=== PATIENT | female | born 1975 | race Caucasian/White ===

== ENCOUNTER 2016-05-17 08:42 | Emergency (ER) | payer SELFPAY ==
[~2016-05-17] VITALS: Ht 160 cm; Wt 152.0 kg
[2016-05-17] MEDS ORDERED: IV NORMAL SALINE 1000ML BAG 1,000 ML IV ONE (09:00)
--- NOTE | 2016-05-17 09:22 | RAD ---
Right hand, 3 views, 05/17/2016: History: Seizure, hand pain No fracture or dislocation is identified. A small well-defined lucency is present in the scaphoid bone, probably a benign cyst. The soft tissues are unremarkable. IMPRESSION: No acute bony abnormality is detected.
--- NOTE | 2016-05-17 09:51 | EKG ---
[facility] [address] [place] [address] Test Date: 2016-05-17 Test Time: 09:18:38 Pat Name: VIJAY SOTO Department: Room: Gender: F Casualty Claim Adjuster: : 1975 Requested By: HUBERT CINTRON Order Number: [id number] Reading MD: Laurel Sanford Measurements Intervals [place] Rate: 77 P: 39 MI: 138 QRS: -21 QRSD: 106 T: 14 QT: 416 QTc: 473 Interpretive Statements SINUS RHYTHM LEFTWARD AXIS INCOMPLETE RIGHT BUNDLE BRANCH BLOCK RI6.01 No previous ECG available for comparison Electronically Signed On 05-17-2016 20:59:28 CDT by Laurel Sanford
[2016-05-17 09:59] LABS: BASO % 0 % (0-3); EOS % 1 % (0-3); HEMATOCRIT 37.4 % (36.0-47.0); HEMOGLOBIN 12.2 g/dL (12.0-15.5); LYMPH # 2.6 x10^3/uL (1.0-4.8); LYMPH % 26 % (24-48); MEAN CORPUSCULAR HEMOGLOBIN 26 pg (25-35); MEAN CORPUSCULAR HGB CONC 33 g/dL (31-37); MEAN CORPUSCULAR VOLUME 79 fL (79-100); MONO % 5 % (0-9); NEUT % 67 % (31-73); PLATELET COUNT 246 x10^3/uL (140-400); RED BLOOD COUNT 4.74 x10^6/uL (3.50-5.40); RED CELL DISTRIBUTION WIDTH 14.7 % (11.5-14.5); WHITE BLOOD COUNT 10.2 x10^3/uL (4.0-11.0)
--- NOTE | 2016-05-17 10:49 | PHYS DOC ---
Past Medical History Past Medical History: Seizure Additional Past Medical Histor: 1- 7yrs ago in 2010 and 1- 3yrs ago. Past Surgical History: , Tubal ligation Additional Information: "Roll my own." Smokes at least 20 cigarettes/day. Alcohol Use: None Drug Use: None Adult General Chief Complaint Chief Complaint: SEIZURE HPI HPI Patient is a 40 year old female who presents with seizure. Patient brought by EMS, legal support analyst providing history. Reportedly patient was sitting on the edge of her bed, family witnessed tonic-clonic movements for unknown duration which spontaneously resolved. unknown whether she experienced fall, she was seated on the floor when she awoke. She denies tongue biting, loss of bowel/bladder continence. Denies any headache, neck pain, back pain, extremity pain. She denies any recent illness, new medications, alcohol use or discontinuation, use of street drugs. She reports previous history 7 years ago while , took oral medications briefly but was lost to follow up, had a single seizure about 3 years ago & did not seek medical attention. Not currently taking any antiepileptic medication or following with a neurologist or PCP. Review of Systems Review of Systems Constitutional: Denies fever or chills Eyes: Denies change in visual acuity HENT: Denies nasal congestion or sore throat Respiratory: Denies cough or shortness of breath Cardiovascular: Denies chest pain or edema GI: Denies abdominal pain, nausea, vomiting : Denies dysuria Musculoskeletal: Denies back pain or joint pain Integument: Denies rash or skin lesions Neurologic: Reports seizure & headache, denies focal weakness or sensory changes Current Medications Current Medications Current Medications Medications (Trade) Dose Ordered Sig/Shandra Start Time Stop Time Status Last Admin Dose Admin Sodium Chloride (Iv Sodium Chloride 0.9% 1000ml Bag) 1,000 ml @ 1,000 mls/hr 1X ONCE 05/17/16 09:00 05/17/16 09:59 DC 05/17/16 10:54 1,000 MLS/HR Allergies Allergies Allergies Coded Allergies Type Severity Reaction Last Updated Verified Penicillins Allergy Intermediate Hives 11/29/13 No Physical Exam Physical Exam Constitutional: obese, poor hygiene, no acute distress, non-toxic appearance. HENT: Normocephalic, atraumatic, bilateral external ears normal, oropharynx moist, nose normal. poor dentition. Eyes: PERRLA, EOMI, conjunctiva normal, no discharge. Neck: supple, no stridor. no midline c-spine tenderness. Cardiovascular: RRR, no murmurs, no edema. Lungs & Thorax: LCTAB, no wheezing, no respiratory distress. Abdomen: soft, nontender, nondistended. Skin: Warm, dry, no erythema, no rash. Back: No focal tenderness with palpation over the spine. Extremities: No focal bony tenderness, no edema. right hand tenderness noted over 5th metacarpal without swelling or deformity, no wrist tenderness, radial pulse 2+, radial/median/ulnar nerve sensory & motor function intact. Neurologic: Alert and oriented X 3, CN2-12 grossly intact, symmetric strength/ sensation to UE & LE, no focal deficits noted. Psychologic: Affect normal, judgement normal, mood normal. Current Patient Data Vital Signs Vital Signs Date Time Temp Pulse Resp B/P Pulse Ox O2 Delivery O2 Flow Rate FiO2 05/17/16 12:30 72 20 153/84 95 Room Air 05/17/16 08:42 97.5 95 97.5 Lab Values Laboratory Tests Test 05/17/16 09:48 05/17/16 09:50 05/17/16 10:40 05/17/16 10:45 POC Urine HCG, Qualitative Hcg negative (Negative) White Blood Count 10.2x10^3/uL (4.0-11.0) Red Blood Count 4.74x10^6/uL (3.50-5.40) Hemoglobin 12.2g/dL (12.0-15.5) Hematocrit 37.4% (36.0-47.0) Mean Corpuscular Volume 79fL (79-100) Mean Corpuscular Hemoglobin 26pg (25-35) Mean Corpuscular Hemoglobin Concent 33g/dL (31-37) Red Cell Distribution Width 14.7% (11.5-14.5) H Platelet Count 246x10^3/uL (140-400) Neutrophils (%) (Auto) 67% (31-73) Lymphocytes (%) (Auto) 26% (24-48) Monocytes (%) (Auto) 5% (0-9) Eosinophils (%) (Auto) 1% (0-3) Basophils (%) (Auto) 0% (0-3) Neutrophils # (Auto) 6.8x10^3uL (1.8-7.7) Lymphocytes # (Auto) 2.6x10^3/uL (1.0-4.8) Monocytes # (Auto) 0.6x10^3/uL (0.0-1.1) Eosinophils # (Auto) 0.1x10^3/uL (0.0-0.7) Basophils # (Auto) 0.0x10^3/uL (0.0-0.2) Urine Opiates Screen Neg (NEG) Urine Methadone Screen Neg (NEG) Urine Barbiturates Neg (NEG) Urine Phencyclidine Screen Neg (NEG) Urine Amphetamine/Methamphetamine Neg (NEG) Urine Benzodiazepines Screen Neg (NEG) Urine Cocaine Screen Neg (NEG) Urine Cannabinoids Screen Pos (NEG) Urine Ethyl Alcohol Neg (NEG) Sodium Level 136mmol/L (136-145) Potassium Level 3.8mmol/L (3.5-5.1) Chloride Level 103mmol/L (98-107) Carbon Dioxide Level 21mmol/L (21-32) Anion Gap 12 (6-14) Blood Urea Nitrogen 12mg/dL (7-20) Creatinine 0.9mg/dL (0.6-1.0) Estimated GFR (Cockcroft-Gault) 70.1 BUN/Creatinine Ratio 13 (6-20) Glucose Level 173mg/dL (70-99) H Calcium Level 9.3mg/dL (8.5-10.1) Total Bilirubin 0.3mg/dL (0.2-1.0) Aspartate Amino Transferase (AST) 24U/L (15-37) Alanine Aminotransferase (ALT) 25U/L (14-59) Alkaline Phosphatase 107U/L (46-116) Total Protein 8.4g/dL (6.4-8.2) H Albumin 3.2g/dL (3.4-5.0) L Albumin/Globulin Ratio 0.6 (1.0-1.7) L Ethyl Alcohol Level < 10mg/dL (0-10) Laboratory Tests 05/17/16 09:50 Laboratory Tests 05/17/16 10:45 EKG EKG Introverted by me: Normal sinus rhythm rate 77, no ST elevation, T waves inverted in leads 3, V1/V2, QTC prolonged 473 ms, no ectopy. [] Radiology/Procedures Radiology/Procedures PROCEDURE: HEAD WO CONTRAST CT of the head without contrast, 05/17/2016: History: Seizure Comparison is made to a study from 11/16/2006. The ventricles are within normal limits in size. There is no shift of the midline structures. There is no evidence of acute intracranial hemorrhage or mass effect. IMPRESSION: No acute intracranial abnormality is detected. PQRS Compliance Statement: One or more of the following individualized dose reduction techniques were utilized for this examination: 1. Automated exposure control 2. Adjustment of the mA and/or kV according to patient size 3. Use of iterative reconstruction technique DICTATED and SIGNED BY: LEON SEWELL MD DATE: 05/17/16 1118 PROCEDURE: HAND RIGHT 3V Right hand, 3 views, 05/17/2016: History: Seizure, hand pain No fracture or dislocation is identified. A small well-defined lucency is present in the scaphoid bone, probably a benign cyst. The soft tissues are unremarkable. IMPRESSION: No acute bony abnormality is detected. DICTATED and SIGNED BY: LEON SEWELL MD DATE: 05/17/16 0918 [] Course & Med Decision Making Course & Med Decision Making Pertinent Labs and Imaging studies reviewed. (See chart for details) Patient presents after seizure. Normal neurologic exam upon arrival, not postictal. EMS did report possible postictal state upon their arrival to the scene. CT head unremarkable for acute process. Labs as above, UDS shows + cannabinoid. I offered admission for seizure workup which patient declined. Discussed presentation, exam, & results with Dr. Hearn contract project manager for neurology. She recommends that patient may be discharged today, requested order for outpatient EEG & she will follow up with patient if results are abnormal. Patient counseled to discontinue marijuana use, no driving, do not bathe or shower when alone in the home, no swimming. Follow up in neurology clinic or with primary care within 1 week. Come back for status epilepticus, serious injury sustained during seizure, otherwise worsening condition. Discharged home in stable condition. [] Dragon Disclaimer Dragon Disclaimer This electronic medical record was generated, in whole or in part, using a voice recognition dictation system. Departure Departure Impression: Primary Impression: Seizure Additional Impressions: Hand contusion Marijuana abuse Disposition: HOME, SELF-CARE Condition: STABLE Referrals: PABLO HEARN MD Patient Instructions: Seizure, Adult, [id number] Additional Instructions: You were seen in the emergency department today for seizure. Tests here did not show any serious findings. You did test positive for marijuana in your urine. This could be related to the seizure. Please do not use street drugs. Do not drive a car, take a bath or shower when neurologic in the house, or operate heavy machinery. Follow-up within [address] Hearn in the neurology clinic. You will need to have an EEG performed at that time. Come back to the emergency department for recurrence of seizure, prolonged seizure, injury sustained during seizure, any otherwise worsening condition. Problem Qualifiers HUBERT CINTRON MD May 17, 2016 10:48
[2016-05-17 11:05] LABS: CALCIUM 9.3 mg/dL (8.5-10.1); CREATININE 0.9 mg/dL (0.6-1.0); GFR 70.1; POTASSIUM 3.8 mmol/L (3.5-5.1)
[2016-05-17 11:05] LABS: BARBITURATES NEG (NEG); BENZODIAZEPINES NEG (NEG); CANNABINOIDS POS (NEG); COCAINE NEG (NEG); METHADONE NEG (NEG); OPIATES NEG (NEG); PHENCYCLIDINE NEG (NEG)
[2016-05-17 11:07] LABS: ETHANOL, URINE NEG (NEG)
[2016-05-17 11:11] LABS: ALBUMIN 3.2 g/dL (3.4-5.0); ALBUMIN/GLOBULIN RATIO 0.6 (1.0-1.7); TOTAL BILIRUBIN 0.3 mg/dL (0.2-1.0); TOTAL PROTEIN 8.4 g/dL (6.4-8.2)
--- NOTE | 2016-05-17 11:22 | RAD ---
CT of the head without contrast, 05/17/2016: History: Seizure Comparison is made to a study from 11/16/2006. The ventricles are within normal limits in size. There is no shift of the midline structures. There is no evidence of acute intracranial hemorrhage or mass effect. IMPRESSION: No acute intracranial abnormality is detected. PQRS Compliance Statement: One or more of the following individualized dose reduction techniques were utilized for this examination: 1. Automated exposure control 2. Adjustment of the mA and/or kV according to patient size 3. Use of iterative reconstruction technique
[2016-05-17 12:30] VITALS: BP 153/84
== END 2016-05-17 13:30 | disposition home or self-care (01) ==
LOC: ER 08:42
DX: S60.221A Contusion of right hand, initial encounter (principal); R56.9 Unspecified convulsions; F12.10 Cannabis abuse, uncomplicated; R51 Headache; E66.9 Obesity, unspecified; F17.210 Nicotine dependence, cigarettes, uncomplicated; Z68.43 Body mass index [BMI] 50.0-59.9, adult; Z88.0 Allergy status to penicillin; W06.XXXA Fall from bed, initial encounter; Y93.89 Activity, other specified; Y92.89 Other specified places as the place of occurrence of the external cause; Y99.8 Other external cause status
CPT/HCPCS: 36415; 70450; 73130; 80053; 80305; 80320; 81025; 85027; 93005; 96360; 96361; 99285; J7030; G0480; G0481

== ENCOUNTER 2016-08-07 16:20 | Emergency (ER) | payer SELFPAY ==
[~2016-08-07] VITALS: Ht 152.4 cm; Wt 104.3 kg
--- NOTE | 2016-08-07 17:14 | PHYS DOC ---
Past Medical History Past Medical History: Seizure Additional Past Medical Histor: 1- 7yrs ago in 2010 and 1- 3yrs ago. Past Surgical History: , Tubal ligation Alcohol Use: None Drug Use: None Adult General Chief Complaint Chief Complaint: VAGINAL PROBLEM HPI HPI Patient is a 41 year old female with history seizure and morbidly obese who presents today complaining of vaginal pain for 2 days. Patient states she thought she had a cyst on her right labia and she tried to pop it yesterday but still has the pain in the vaginal area. Patient states her son is overweight too and has diabetes, patient states she does not have diabetes or high blood pressure. Review of Systems Review of Systems Constitutional: Denies fever or chills [] Eyes: Denies change in visual acuity, redness, or eye pain [] HENT: Denies nasal congestion or sore throat [] Respiratory: Denies cough or shortness of breath [] Cardiovascular: No additional information not addressed in HPI [] GI: Denies abdominal pain, nausea, vomiting, bloody stools or diarrhea [] : Denies dysuria or hematuria [] Musculoskeletal: Denies back pain or joint pain [] Integument: vaginal pain. Neurologic: Denies headache, focal weakness or sensory changes [] Endocrine: Denies polyuria or polydipsia [] Current Medications Current Medications Current Medications Medications (Trade) Dose Ordered Sig/Shandra Start Time Stop Time Status Last Admin Dose Admin Acetaminophen/ Hydrocodone Bitart (Lortab 5/325) 1 tab 1X ONCE 08/07/16 18:45 08/07/16 18:46 DC 08/07/16 18:37 1 TAB Diphtheria/ Tetanus/Acell Pertussis (Boostrix) 0.5 ml ONCE ONCE 08/07/16 17:30 08/07/16 17:31 DC 08/07/16 18:04 0.5 ML Insulin Human Regular (NovoLIN R VIAL) 8 unit 1X ONCE 08/07/16 18:45 08/07/16 18:46 DC 08/07/16 18:33 8 UNIT Lidocaine HCl (Glydo (Lidocaine) Jelly) 1 sahil 1X ONCE 08/07/16 19:30 08/07/16 19:31 08/07/16 19:22 1 SAHIL Sodium Chloride 1,000 ml @ 1,000 mls/hr 1X ONCE 08/07/16 18:30 08/07/16 19:29 08/07/16 18:41 1,000 MLS/HR Allergies Allergies Allergies Coded Allergies Type Severity Reaction Last Updated Verified Penicillins Allergy Intermediate Hives 11/29/13 No Physical Exam Physical Exam Constitutional: Well developed, well nourished, no acute distress, non-toxic appearance. [] HENT: Normocephalic, atraumatic, bilateral external ears normal, oropharynx moist, no oral exudates, nose normal. [] Eyes: PERRLA, EOMI, conjunctiva normal, no discharge. [] Neck: Normal range of motion, no tenderness, supple, no stridor. [] Cardiovascular:Heart rate regular rhythm, no murmur [] Lungs & Thorax: Bilateral breath sounds clear to auscultation [] Abdomen: Bowel sounds normal, soft, no tenderness, no masses, no pulsatile masses. [] Pelvic exam External pelvic has moderate erythematous and macerated areas consistent with a yeast infection. No abscess noted. Skin: Warm, dry, no erythema, no rash. [] Back: No tenderness, no CVA tenderness. [] Extremities: No tenderness, no cyanosis, no clubbing, ROM intact, no edema. [] Neurologic: Alert and oriented X 3, normal motor function, normal sensory function, no focal deficits noted. [] Psychologic: Affect normal, judgement normal, mood normal. [] Current Patient Data Vital Signs Vital Signs Date Time Temp Pulse Resp B/P (MAP) Pulse Ox O2 Delivery O2 Flow Rate FiO2 08/07/16 18:37 18 99 Room Air 08/07/16 18:10 100 158/72 (100) 08/07/16 16:20 98.9 98.9 Lab Values Laboratory Tests Test 08/07/16 17:11 08/07/16 17:27 08/07/16 17:57 08/07/16 18:14 Glucose (Fingerstick) 456 mg/dL (70-99) H POC Urine HCG, Qualitative Hcg negative (Negative) White Blood Count 14.3 x10^3/uL (4.0-11.0) H Red Blood Count 4.78 x10^6/uL (3.50-5.40) Hemoglobin 12.4 g/dL (12.0-15.5) Hematocrit 37.5 % (36.0-47.0) Mean Corpuscular Volume 79 fL (79-100) Mean Corpuscular Hemoglobin 26 pg (25-35) Mean Corpuscular Hemoglobin Concent 33 g/dL (31-37) Red Cell Distribution Width 15.8 % (11.5-14.5) H Platelet Count 297 x10^3/uL (140-400) Neutrophils (%) (Auto) 77 % (31-73) H Lymphocytes (%) (Auto) 16 % (24-48) L Monocytes (%) (Auto) 5 % (0-9) Eosinophils (%) (Auto) 1 % (0-3) Basophils (%) (Auto) 1 % (0-3) Neutrophils # (Auto) 11.0 x10^3uL (1.8-7.7) H Lymphocytes # (Auto) 2.4 x10^3/uL (1.0-4.8) Monocytes # (Auto) 0.7 x10^3/uL (0.0-1.1) Eosinophils # (Auto) 0.1 x10^3/uL (0.0-0.7) Basophils # (Auto) 0.1 x10^3/uL (0.0-0.2) Sodium Level 133 mmol/L (136-145) L Potassium Level 3.9 mmol/L (3.5-5.1) Chloride Level 99 mmol/L (98-107) Carbon Dioxide Level 27 mmol/L (21-32) Anion Gap 7 (6-14) Blood Urea Nitrogen 7 mg/dL (7-20) Creatinine 1.0 mg/dL (0.6-1.0) Estimated GFR (Cockcroft-Gault) 61.7 Glucose Level 400 mg/dL (70-99) H Calcium Level 9.5 mg/dL (8.5-10.1) Urine Collection Type Unknown Urine Color Red Urine Clarity Cloudy Urine pH 6.5 Urine Specific [place] >=1.030 Urine Protein 100 mg/dL (NEG-TRACE) Urine Glucose (UA) >=1000 mg/dL (NEG) Urine Ketones (Stick) Trace mg/dL (NEG) Urine Blood Large (NEG) Urine Nitrite Negative (NEG) Urine Bilirubin Negative (NEG) Urine Urobilinogen Dipstick 0.2 mg/dL (0.2 mg/dL) Urine Leukocyte Esterase Moderate (NEG) Urine RBC Tntc /HPF (0-2) Urine WBC 20-40 /HPF (0-4) Urine Squamous Epithelial Cells Mod /LPF Urine Bacteria Mod /HPF (0-FEW) Urine Mucus Slight /LPF Laboratory Tests 08/07/16 17:57 Laboratory Tests 08/07/16 17:57 EKG EKG [] Radiology/Procedures Radiology/Procedures [] Course & Med Decision Making Course & Med Decision Making Pertinent Labs and Imaging studies reviewed. (See chart for details) Patient is in the ED complaining of vaginal pain and a cyst on her right labia that she tried to pop but nothing came out. No cyst was noted on the right labia but she has moderate candidiasis. She is morbidly obese at approx. 230 pounds. Patient's blood sugar is 456, blood pressure was 172/94, denies any history of hypertension. CBC with a WBC of 14.1, BMP with glucose of 400, anion gap 7. Urine positive for UTI. Patient was given 2 L of IV fluid and 8 units of insulin. Blood glucose is 170. She has been asking for food since she came to the ED. We had to talk to her about diabetes high blood pressure and the need to exercise and lose some weight. Patient continues to state she does not care about her weight , diabetes or hypertension despite telling her what will happen if her sugars are not under control and her blood pressures continue to be high. She was discharged with fluconazole, nystatin cream, lidocaine cream, Bactrim for UTI, and hydrocodone for pain. She was instructed to follow-up with a doctor from the list provided as soon as she can. She was provided return precautions and discharged in stable condition. Dragon Disclaimer Dragon Disclaimer This electronic medical record was generated, in whole or in part, using a voice recognition dictation system. Departure Departure Impression: Primary Impression: Acute hyperglycemia Additional Impressions: Urinary tract infection Vaginal candidiasis Diabetes Hypertension Disposition: HOME, SELF-CARE Condition: STABLE Referrals: NO PCP (PCP) Follow-up with a primary care doctor from the list provided tomorrow. Patient Instructions: 1800 Calorie Diet for Diabetes Meal Planning, Candidal Vulvovaginitis, [id number], Diabetes Meal Planning Guide, Hypertension, Urinary Tract Infection Additional Instructions: You were seen for vaginal candidiasis. This is a yeast infection that typically occurs on patient's with diabetes. Your lab work shows you have diabetes and you also have high blood pressure. We highly recommend you follow-up with a primary care doctor from the list provided as soon as possible. You also have urinary tract infection. We put you on antibiotics. Take them as prescribed. Consider following the 1800-calorie diet attached to this paperwork. Scripts Nystatin (NYSTATIN) 15 Gm Oint...g. 1 SAHIL TP TID, #15 GM 2 Refills apply to external vaginal area. Prov: KG PIERCE APRN 08/07/16 Hydrocodone/Apap 5-325 (NORCO 5-325 TABLET) 1 Each Tablet 1-2 TAB PO Q4-6HRS, #15 TAB Prov: KG PIERCE APRN 08/07/16 Lidocaine/Prilocaine (LIDOCAINE-PRILOCAINE CREAM) 30 Gm Cream..g. 1 SAHIL TP UD, #30 GM 1 Refill Apply to the affected exterior vaginal area as needed for pain Prov: KG PIERCE APRN 08/07/16 Sulfamethoxazole/Trimethoprim (BACTRIM DS TABLET) 1 Each Tablet 1 TAB PO BID, #10 TAB Prov: KG PIERCE APRN 08/07/16 Fluconazole (DIFLUCAN) 150 Mg Tablet 1 TAB PO ONCE, #2 TAB 1 Refill Take one tablet today and repeat in seven days Prov: KG PIERCE APRN 08/07/16 Problem Qualifiers Additional Impressions: Urinary tract infection Urinary tract infection type: site unspecified Hematuria presence: without hematuria Qualified Codes: N39.0 - Urinary tract infection, site not specified Diabetes Diabetes mellitus type: type 2 Diabetes mellitus complication status: with unspecified complications Diabetes mellitus long term care social worker insulin use: without detention use Qualified Codes: E11.8 - Type 2 diabetes mellitus with unspecified complications Hypertension Hypertension type: unspecified secondary hypertension Qualified Codes: I15.9 - Secondary hypertension, unspecified KG PIERCE APRN Aug 07, 2016 17:14
[2016-08-07] MEDS ORDERED: DIPHTH,PERTUSS(ACELL),TET TOX 0.5 ML DISP.SYRIN. VAX IM ONE (17:30)
[2016-08-07] MEDS ORDERED: IV NORMAL SALINE 1000ML BAG 1,000 ML IV ONE ×2 (17:30→18:30)
[2016-08-07 18:04] LABS: BASO # 0.1 x10^3/uL (0.0-0.2); BASO % 1 % (0-3); EOS % 1 % (0-3); HEMATOCRIT 37.5 % (36.0-47.0); HEMOGLOBIN 12.4 g/dL (12.0-15.5); LYMPH # 2.4 x10^3/uL (1.0-4.8); LYMPH % 16 % (24-48); MEAN CORPUSCULAR HEMOGLOBIN 26 pg (25-35); MEAN CORPUSCULAR HGB CONC 33 g/dL (31-37); MEAN CORPUSCULAR VOLUME 79 fL (79-100); MONO % 5 % (0-9); NEUT % 77 % (31-73); PLATELET COUNT 297 x10^3/uL (140-400); RED BLOOD COUNT 4.78 x10^6/uL (3.50-5.40); RED CELL DISTRIBUTION WIDTH 15.8 % (11.5-14.5); WHITE BLOOD COUNT 14.3 x10^3/uL (4.0-11.0)
[2016-08-07 18:16] LABS: CALCIUM 9.5 mg/dL (8.5-10.1); GFR 61.7; POTASSIUM 3.9 mmol/L (3.5-5.1)
[2016-08-07 18:24] LABS: BILIRUBIN,URINE NEGATIVE (NEG); GLUCOSE,URINE >=1000 mg/dL (NEG); NITRITE,URINE NEGATIVE (NEG); PH,URINE 6.5; PROTEIN,URINE 100 mg/dL (NEG-TRACE); UROBILINOGEN,URINE 0.2 mg/dL (0.2 mg/dL)
[2016-08-07 18:34] LABS: BACTERIA,URINE MOD /HPF (0-FEW); RBC,URINE TNTC /HPF (0-2); SQUAMOUS EPITHELIAL CELL,UR MOD /LPF; WBC,URINE 20-40 /HPF (0-4)
[2016-08-07] MEDS ORDERED: INSULIN REGULAR 100 UNIT/ML 10ML VIAL. IV ONE (18:45)
[2016-08-07] MEDS ORDERED: HYDROcodone/APAP 5/325MG 1 TAB TABLET PO ONE (18:45)
[2016-08-07 19:16] VITALS: BP 172/94
[2016-08-07] MEDS ORDERED: HYDR-971 PO (19:21)
[2016-08-07] MEDS ORDERED: SULF1TAB24 PO (19:21)
[2016-08-07] MEDS ORDERED: LIDO30CR TP (19:21)
[2016-08-07] MEDS ORDERED: FLUC150T PO (19:21)
[2016-08-07] MEDS ORDERED: NYST15OI TP (19:28)
[2016-08-07] MEDS ORDERED: LIDOCAINE 2% JELLY 6ML IN APPLICATOR. MM ONE (19:30)
== END 2016-08-07 19:40 | disposition home or self-care (01) ==
LOC: ER 16:20
DX: N39.0 Urinary tract infection, site not specified (principal); B37.3 Candidiasis of vulva and vagina; E11.65 Type 2 diabetes mellitus with hyperglycemia; I15.9 Secondary hypertension, unspecified; N90.7 Vulvar cyst; E66.01 Morbid (severe) obesity due to excess calories; Z68.41 Body mass index [BMI] 40.0-44.9, adult; Z98.890 Other specified postprocedural states; Z98.51 Tubal ligation status; Z88.0 Allergy status to penicillin
CPT/HCPCS: 36415; 80048; 81001; 81025; 82962; 85027; 90471; 90715; 96361; 96374; 99284; J1815; J7030

== ENCOUNTER 2018-07-09 16:15 | Emergency (ER) | payer OTHER, SELFPAY ==
[~2018-07-09] VITALS: Ht 162.6 cm; Wt 113.4 kg
[~2018-07-09 16:15] MED LIST: FLUC150T PO; HYDR-3164 PO; LIDO30CR TP; NYST15OI TP; SULF1TAB24 PO
--- NOTE | 2018-07-09 16:43 | PHYS DOC ---
Past Medical History Past Medical History: Diabetes-Type II, Seizure Additional Past Medical Histor: 1- 7yrs ago in 2010 and 1- 3yrs ago. (CRISTINA COTTO APRN) Past Surgical History: , Tubal ligation (CRISTINA COTTO APRN) Smoking: Cigarettes, Less than 1pk/day Alcohol Use: None Drug Use: None (CRISTINA COTTO APRN) Adult General Chief Complaint Chief Complaint: CHEST WALL PAIN HPI HPI Patient is a 43 year old female who presents with chest pain that has been ongoing for month. She has associated symptoms include a cough that has been ongoing for 2 Months, also has urinary frequency. She has hx of diabetes but does not take medications or follow with a primary care provider. States the pain worsens when she moves her arm or breathes in and out. Rates her pain as 7/10 and aches. She is a poor historian and does not go to a primary care doctor. (CRISTINA COTTO APRN) Review of Systems Review of Systems Constitutional: Denies fever or chills [] Eyes: Denies change in visual acuity, redness, or eye pain [] HENT: Denies nasal congestion or sore throat [] Respiratory: Reports cough and shortness of breath [] Cardiovascular: No additional information not addressed in HPI [] GI: Denies abdominal pain, nausea, vomiting, bloody stools or diarrhea [] : Denies dysuria or hematuria [] Musculoskeletal: Denies back pain or joint pain [] Integument: Denies rash or skin lesions [] Neurologic: Reports headache and dizziness, denies focal weakness or sensory ch anges [] Endocrine: Reports polyuria denies polydipsia [] Complete systems were reviewed and found to be within normal limits, except as documented in this note. (CRISTINA COTTO APRN) Current Medications Current Medications Current Medications Medications (Trade) Dose Ordered Sig/Shandra Start Time Stop Time Status Last Admin Dose Admin Albuterol/ Ipratropium (Duoneb) 3 ml 1X ONCE 07/09/18 17:15 07/09/18 17:16 DC 07/09/18 17:24 3 ML Levofloxacin (Levaquin) 750 mg 1X ONCE 07/09/18 18:00 07/09/18 18:01 DC 07/09/18 17:58 750 MG Methylprednisolone Sodium Succinate (SOLU-Medrol 125MG VIAL) 125 mg 1X ONCE 07/09/18 17:45 07/09/18 17:46 DC 07/09/18 17:58 125 MG (VEE CASTILLO MD) Allergies Allergies Allergies Coded Allergies Type Severity Reaction Last Updated Verified Penicillins Allergy Intermediate Hives 11/29/13 No (VEE CASTILLO MD) Physical Exam Physical Exam Constitutional: Well developed, well nourished, no acute distress, non-toxic appearance. [] HENT: Normocephalic, atraumatic, bilateral external ears normal, oropharynx moist, no oral exudates, nose normal. [] Eyes: PERRLA, EOMI, conjunctiva normal, no discharge. [] Neck: Normal range of motion, no tenderness, supple, no stridor. [] Cardiovascular:Heart rate regular rhythm, no murmur, tenderness to chest. Lungs & Thorax: Bilateral breath sounds with rhonchi and wheezing diffusely. Abdomen: Soft, no tenderness, no masses, no pulsatile masses. [] Skin: Warm, dry, no erythema, no rash. [] Back: No tenderness, no CVA tenderness. [] Extremities: No tenderness, no cyanosis, no clubbing, ROM intact, no edema. [] Neurologic: Alert and oriented X 3, normal motor function, normal sensory function, no focal deficits noted. [] Psychologic: Affect normal, judgement normal, mood normal. [] (CRISTINA COTTO APRN) Current Patient Data Vital Signs Vital Signs Date Time Temp Pulse Resp B/P (MAP) Pulse Ox O2 Delivery O2 Flow Rate FiO2 07/09/18 17:58 84 20 145/67 (93) 97 Room Air 07/09/18 16:15 97.9 97.9 (VEE CASTILLO MD) Lab Values Laboratory Tests Test 07/09/18 16:50 07/09/18 17:05 Glucose (Fingerstick) 138 mg/dL (70-99) H White Blood Count 9.7 x10^3/uL (4.0-11.0) Red Blood Count 4.46 x10^6/uL (3.50-5.40) Hemoglobin 10.6 g/dL (12.0-15.5) L Hematocrit 33.6 % (36.0-47.0) L Mean Corpuscular Volume 76 fL (79-100) L Mean Corpuscular Hemoglobin 24 pg (25-35) L Mean Corpuscular Hemoglobin Concent 32 g/dL (31-37) Red Cell Distribution Width 17.2 % (11.5-14.5) H Platelet Count 313 x10^3/uL (140-400) Neutrophils (%) (Auto) 53 % (31-73) Lymphocytes (%) (Auto) 37 % (24-48) Monocytes (%) (Auto) 6 % (0-9) Eosinophils (%) (Auto) 3 % (0-3) Basophils (%) (Auto) 1 % (0-3) Neutrophils # (Auto) 5.2 x10^3uL (1.8-7.7) Lymphocytes # (Auto) 3.6 x10^3/uL (1.0-4.8) Monocytes # (Auto) 0.6 x10^3/uL (0.0-1.1) Eosinophils # (Auto) 0.3 x10^3/uL (0.0-0.7) Basophils # (Auto) 0.1 x10^3/uL (0.0-0.2) Urine Color Yellow Urine Clarity Clear Urine pH 7.0 Urine Specific [place] 1.015 Urine Protein 30 mg/dL (NEG-TRACE) Urine Glucose (UA) 500 mg/dL (NEG) Urine Ketones (Stick) Negative mg/dL (NEG) Urine Blood Large (NEG) Urine Nitrite Positive (NEG) Urine Bilirubin Negative (NEG) Urine Urobilinogen Dipstick 1.0 mg/dL (0.2 mg/dL) Urine Leukocyte Esterase Moderate (NEG) Urine RBC 3-5 /HPF (0-2) Urine WBC 5-10 /HPF (0-4) Urine Squamous Epithelial Cells Occ /LPF Urine Bacteria Many /HPF (0-FEW) Urine Mucus Slight /LPF Sodium Level 138 mmol/L (136-145) Potassium Level 3.7 mmol/L (3.5-5.1) Chloride Level 102 mmol/L (98-107) Carbon Dioxide Level 25 mmol/L (21-32) Anion Gap 11 (6-14) Blood Urea Nitrogen 9 mg/dL (7-20) Creatinine 0.9 mg/dL (0.6-1.0) Estimated GFR (Cockcroft-Gault) 69.0 BUN/Creatinine Ratio 10 (6-20) Glucose Level 148 mg/dL (70-99) H Hemoglobin A1c 8.5 % (4.8-5.6) H Calcium Level 8.9 mg/dL (8.5-10.1) Total Bilirubin 0.2 mg/dL (0.2-1.0) Aspartate Amino Transferase (AST) 16 U/L (15-37) Alanine Aminotransferase (ALT) 22 U/L (14-59) Alkaline Phosphatase 124 U/L (46-116) H Troponin I Quantitative < 0.017 ng/mL (0.000-0.055) YA-Fhz-L-Type Natriuretic Peptide 54 pg/mL (0-124) Total Protein 7.6 g/dL (6.4-8.2) Albumin 3.2 g/dL (3.4-5.0) L Albumin/Globulin Ratio 0.7 (1.0-1.7) L Laboratory Tests 07/09/18 17:05 Laboratory Tests 07/09/18 17:05 (VEE CASTILLO MD) Lab Values Laboratory Tests Test 07/09/18 17:05 White Blood Count 9.7 x10^3/uL (4.0-11.0) Red Blood Count 4.46 x10^6/uL (3.50-5.40) Hemoglobin 10.6 g/dL (12.0-15.5) L Hematocrit 33.6 % (36.0-47.0) L Mean Corpuscular Volume 76 fL (79-100) L Mean Corpuscular Hemoglobin 24 pg (25-35) L Mean Corpuscular Hemoglobin Concent 32 g/dL (31-37) Red Cell Distribution Width 17.2 % (11.5-14.5) H Platelet Count 313 x10^3/uL (140-400) Neutrophils (%) (Auto) 53 % (31-73) Lymphocytes (%) (Auto) 37 % (24-48) Monocytes (%) (Auto) 6 % (0-9) Eosinophils (%) (Auto) 3 % (0-3) Basophils (%) (Auto) 1 % (0-3) Neutrophils # (Auto) 5.2 x10^3uL (1.8-7.7) Lymphocytes # (Auto) 3.6 x10^3/uL (1.0-4.8) Monocytes # (Auto) 0.6 x10^3/uL (0.0-1.1) Eosinophils # (Auto) 0.3 x10^3/uL (0.0-0.7) Basophils # (Auto) 0.1 x10^3/uL (0.0-0.2) Urine Color Yellow Urine Clarity Clear Urine pH 7.0 Urine Specific [place] 1.015 Urine Protein 30 mg/dL (NEG-TRACE) Urine Glucose (UA) 500 mg/dL (NEG) Urine Ketones (Stick) Negative mg/dL (NEG) Urine Blood Large (NEG) Urine Nitrite Positive (NEG) Urine Bilirubin Negative (NEG) Urine Urobilinogen Dipstick 1.0 mg/dL (0.2 mg/dL) Urine Leukocyte Esterase Moderate (NEG) Urine RBC 3-5 /HPF (0-2) Urine WBC 5-10 /HPF (0-4) Urine Squamous Epithelial Cells Occ /LPF Urine Bacteria Many /HPF (0-FEW) Urine Mucus Slight /LPF Sodium Level 138 mmol/L (136-145) Potassium Level 3.7 mmol/L (3.5-5.1) Chloride Level 102 mmol/L (98-107) Carbon Dioxide Level 25 mmol/L (21-32) Anion Gap 11 (6-14) Blood Urea Nitrogen 9 mg/dL (7-20) Creatinine 0.9 mg/dL (0.6-1.0) Estimated GFR (Cockcroft-Gault) 69.0 BUN/Creatinine Ratio 10 (6-20) Glucose Level 148 mg/dL (70-99) H Calcium Level 8.9 mg/dL (8.5-10.1) Total Bilirubin 0.2 mg/dL (0.2-1.0) Aspartate Amino Transferase (AST) 16 U/L (15-37) Alanine Aminotransferase (ALT) 22 U/L (14-59) Alkaline Phosphatase 124 U/L (46-116) H Troponin I Quantitative < 0.017 ng/mL (0.000-0.055) OL-Dwi-O-Type Natriuretic Peptide 54 pg/mL (0-124) Total Protein 7.6 g/dL (6.4-8.2) Albumin 3.2 g/dL (3.4-5.0) L Albumin/Globulin Ratio 0.7 (1.0-1.7) L Laboratory Tests 07/09/18 17:05 Laboratory Tests 07/09/18 17:05 (CRISTINA COTTO APRN) EKG EKG Sinus rhythm with rate of 71. NO STEMI. Interpreted by Dr. Castillo. [] (CRISTINA COTTO APRN) Radiology/Procedures Radiology/Procedures Interpreted by Dr. Castillo. No acute findings but appears to have COPD.[] (CRISTINA COTTO APRN) Course & Med Decision Making Course & Med Decision Making Pertinent Labs and Imaging studies reviewed. (See chart for details) Due to the patient's medical history and lack of medical care will get, labs, EKG, chest x-ray, breathing treatment. Imaging shows COPD. Will treat for COPD exacerbation. Labs were unremarkable for acute management with exception of UTI. Will send home on Levaquin to treat UTI and COPD exacerbation and Prednisone. Discussed with patient the cost of the medication and gave a GoodRx card. Patient will get medications and is agreeable to plan. Also discussed the importance of finding a PCP. (CRISTINA COTTO APRN) Course & Med Decision Making Staff Physician Addendum: I was working in the ER during the course of this patient's visit. I was available for consultation as needed, but I was not directly involved in the care of this patient. (VEE CASTILLO MD) Dragon Disclaimer Dragon Disclaimer This electronic medical record was generated, in whole or in part, using a voice recognition dictation system. (CRISTINA COTTO APRN) Departure Departure Impression: Primary Impression: COPD exacerbation Additional Impression: Urinary tract infection Disposition: 01 HOME, SELF-CARE Condition: STABLE Referrals: NO PCP (PCP) Patient Instructions: Chronic Obstructive Pulmonary Disease Exacerbation, Urinary Tract Infection Additional Instructions: Please obtain a primary care doctor for follow up. Come back to ER as needed. Take Levaquin starting tomorrow for 4 days. Scripts Prednisone (PREDNISONE) 20 Mg Tablet 3 TAB PO DAILY for 7 Days, #21 TAB Prov: CRISTINA COTTO APRN 07/09/18 Levofloxacin (LEVOFLOXACIN) 750 Mg Tablet 1 TAB PO DAILY for 4 Days, #4 TAB Prov: CRISTINA COTTO APRN 07/09/18 Problem Qualifiers Additional Impression: Urinary tract infection Urinary tract infection type: acute cystitis Hematuria presence: with hematuria Qualified Codes: N30.01 - Acute cystitis with hematuria CRISTINA COTTO APRN July 09, 2018 16:43 VEE CASTILLO MD July 10, 2018 18:46
[2018-07-09] MEDS ORDERED: IPRATRPIUM/ALBUTEROL 0.5/2.5MG 3 ML NEBU. NEB ONE ×2 (16:45→17:15)
[2018-07-09 17:17] LABS: BASO # 0.1 x10^3/uL (0.0-0.2); BASO % 1 % (0-3); EOS # 0.3 x10^3/uL (0.0-0.7); EOS % 3 % (0-3); HEMATOCRIT 33.6 % (36.0-47.0); HEMOGLOBIN 10.6 g/dL (12.0-15.5); LYMPH # 3.6 x10^3/uL (1.0-4.8); LYMPH % 37 % (24-48); MEAN CORPUSCULAR HEMOGLOBIN 24 pg (25-35); MEAN CORPUSCULAR HGB CONC 32 g/dL (31-37); MEAN CORPUSCULAR VOLUME 76 fL (79-100); MONO # 0.6 x10^3/uL (0.0-1.1); MONO % 6 % (0-9); NEUT # 5.2 x10^3uL (1.8-7.7); NEUT % 53 % (31-73); PLATELET COUNT 313 x10^3/uL (140-400); RED BLOOD COUNT 4.46 x10^6/uL (3.50-5.40); RED CELL DISTRIBUTION WIDTH 17.2 % (11.5-14.5); WHITE BLOOD COUNT 9.7 x10^3/uL (4.0-11.0)
[2018-07-09 17:20] LABS: BILIRUBIN,URINE NEGATIVE (NEG); CLARITY,URINE CLEAR; COLOR,URINE YELLOW; NITRITE,URINE POSITIVE (NEG); PROTEIN,URINE 30 mg/dL (NEG-TRACE)
[2018-07-09 17:34] LABS: BACTERIA,URINE MANY /HPF (0-FEW); SQUAMOUS EPITHELIAL CELL,UR OCC /LPF
[2018-07-09 17:38] LABS: CALCIUM 8.9 mg/dL (8.5-10.1); CREATININE 0.9 mg/dL (0.6-1.0); POTASSIUM 3.7 mmol/L (3.5-5.1)
[2018-07-09 17:42] LABS: ALBUMIN 3.2 g/dL (3.4-5.0); ALBUMIN/GLOBULIN RATIO 0.7 (1.0-1.7); TOTAL BILIRUBIN 0.2 mg/dL (0.2-1.0); TOTAL PROTEIN 7.6 g/dL (6.4-8.2)
[2018-07-09] MEDS ORDERED: methylPREDNISolone SOD SUCC PF 125 MG/2 ML VIAL. IV ONE (17:45)
[2018-07-09] MEDS ORDERED: PRED20TA PO (17:46)
[2018-07-09] MEDS ORDERED: LEVO750T5 PO (17:46)
[2018-07-09 17:58] VITALS: BP 145/67
--- NOTE | 2018-07-10 09:48 | EKG ---
[facility] [address] [place] [address] Test Date: 2018-07-09 Test Time: 16:22:57 Pat Name: VIJAY SOTO Department: Room: Gender: F [employer]le Dealer: : 1975 Requested By: CRISTINA COTTO Order Number: [id number] Reading MD: Measurements Intervals [place] Rate: 71 P: 38 WV: 140 QRS: -7 QRSD: 108 T: 20 QT: 428 QTc: 470 Interpretive Statements SINUS RHYTHM LEFTWARD AXIS INCOMPLETE RIGHT BUNDLE BRANCH BLOCK OTHERWISE NORMAL ECG No previous ECG available for comparison
--- NOTE | 2018-07-10 09:49 | RAD ---
Two-view chest dated 07/09/2018. Comparison made to 10/15/2012 FINDINGS: PA and lateral views of the chest were obtained. Heart and mediastinal contours within normal limits. Lungs are clear without focal consolidation. Vascular interstitium within normal limits. No pleural effusion or pneumothorax. IMPRESSION: No acute findings. Electronically signed by: Bryan Moreno MD (07/09/2018 5:45 PM) [facility]
[2018-07-10 14:14] LABS: HEMOGLOBIN A1C 8.5 % (4.8-5.6)
== END 2018-07-09 18:26 | disposition home or self-care (01) ==
LOC: ER 16:15
DX: J44.1 Chronic obstructive pulmonary disease with (acute) exacerbation (principal); N30.01 Acute cystitis with hematuria; R51 Headache; R42 Dizziness and giddiness; F17.210 Nicotine dependence, cigarettes, uncomplicated; E11.9 Type 2 diabetes mellitus without complications; Z98.890 Other specified postprocedural states; Z98.51 Tubal ligation status; Z88.0 Allergy status to penicillin
CPT/HCPCS: 36415; 71046; 80053; 81001; 82962; 83036; 83880; 84484; 85025; 93005; 94640; 96374; 99285; J2930; J7620